=== PATIENT | female | born 1935 | race Caucasian/White ===

== ENCOUNTER 2020-12-09 14:01 | Outpatient (RCR) | payer MEDICARE, SELFPAY ==
[2020-12-09 14:14] VITALS: BP 149/56; PULSE 75; RESP 20; TEMP 36.4
== END 2020-12-12 23:59 | disposition home or self-care (01) ==
LOC: WC 14:01
PROVIDERS: PCP Internal Medicine; Visit Provider Nurse Practitioner Family
DX: Z09 Encounter for follow-up examination after completed treatment for conditions other than malignant neoplasm (principal)

== ENCOUNTER → 2022-02-16 | Outpatient (CLI) | payer MEDICARE, SELFPAY ==
--- NOTE | 2022-02-16 11:22 | ADUL_ITS ---
Reason For Study: Stricture of artery Right Velocities Ext. Iliac Artery, dist = 190.6 cm./sec. Common Femoral Artery, mid = 199.2 cm./sec. SFA is occluded. Bypass graft, prox anastomosis, 182.8 cm/sec. Bypass graft, prox, 100.1 cm/sec. Bypass graft, mid, 86.8 cm/sec. Bypass graft, distal, 91.2 cm/sec. Bypass graft, distal anastomosis, 93.3 cm/sec. Profunda Femoral Artery = 74.2 cm./sec. Popliteal artery, retrograde flow noted. COLOR PASTE MIXER, prox, retrograde flow noted. Post. Tibial Artery, mid = 182.8 cm./sec. Post. Tibial Artery, dist = 100.1 cm./sec. Peroneal Artery, prox = 49.9 cm./sec. Peroneal Artery, mid = 33.9 cm./sec. Peroneal Artery,dist = 29.2 cm./sec. Ant. Tibial Artery, prox = 43.5 cm./sec. Ant. Tibial Artery, mid = 30.2 cm./sec. CHAPO, distal, no flow noted. DPA, 36.9 cm/sec. Procedure Exam performed in department. /US Art Duplex Unilat Lower Ext Interpretation Summary Right lower extremity with no evidence of significant occlusive disease. Bypass graft is widely patent and triphasic flow noted through the tibials. Distal anterior tibial art nohemy appears occluded. Ordering Physician: Quinton Cooley Referring Physician: Humble Douglas Performed By: Humiara Rosado RVT
--- NOTE | 2022-02-16 11:23 | ART_ITS ---
Reason For Study: Stricture of artery Procedure A bilateral lower extremity continuous wave Doppler with analog waveform analysis and ankle brachial indexes. Left Segmental Pressures Left brachial= 153mmHg. Left posterior tibial artery = 88mmHg. Left dorsalis pedis artery = 88mmHg. Left digit = 42 mmHg. The left dorsalis pedis waveforms are monophasic. The left posterior tibial artery waveforms are monophasic. Right Segmental Pressures Right brachial= 152mmHg. Right posterior tibial artery = 164mmHg. Right dorsalis pedis artery = 162mmHg. Right digit = 130 mmHg. The right dorsalis pedis waveforms are biphasic. The right posterior tibial artery waveforms are biphasic. Indices The right ankle brachial index by the dorsalis pedis is 1.06. The right ankle brachial index by the posterior tibial artery is 1.07. The right digital-brachial index is 0.85. The left ankle brachial index by the dorsalis pedis is 0.58. The left ankle brachial index by the posterior tibial artery is 0.58. The left digital-brachial index is 0.27. VL/Ankle Brachial Index Interpretation Summary Right lower extremity with triphasic flow noted in IFEANYI 1.07. Left lower extremi ty with monophasic flow and an IFEANYI 0.58. Right digit brachial index normal at 0.85. Left digit bra chial index of 0.27. Ordering Physician: Quinton Cooley Referring Physician: Humble Douglas Performed By: Humaira Rosado RVT
== END | disposition home or self-care (01) ==
LOC: CVS 11:20
PROVIDERS: PCP Internal Medicine; Visit Provider Surgery Vascular Surgery
DX: I77.1 Stricture of artery (principal); I70.235 Atherosclerosis of native arteries of right leg with ulceration of other part of foot; E11.51 Type 2 diabetes mellitus with diabetic peripheral angiopathy without gangrene; I20.9 Angina pectoris, unspecified; I11.9 Hypertensive heart disease without heart failure; I25.2 Old myocardial infarction; C44.90 Unspecified malignant neoplasm of skin, unspecified; M19.90 Unspecified osteoarthritis, unspecified site; J45.909 Unspecified asthma, uncomplicated; D64.9 Anemia, unspecified; R09.89 Other specified symptoms and signs involving the circulatory and respiratory systems; Z85.05 Personal history of malignant neoplasm of liver
CPT/HCPCS: 93922; 93926

== ENCOUNTER → 2023-04-30 | Outpatient (CLI) | payer MEDICARE, SELFPAY ==
--- NOTE | 2023-04-30 13:49 | ART_ITS ---
Reason For Study: Stricture of artery Procedure A bilateral lower extremity continuous wave Doppler with analog waveform analysis and ankle brachial indexes. Left Segmental Pressures Left brachial= 135mmHg. Left posterior tibial artery = 59mmHg. Left dorsalis pedis artery = 77mmHg. Left digit = 48 mmHg. The left dorsalis pedis waveforms are monophasic. The left posterior tibial artery waveforms are monophasic. Right Segmental Pressures Right brachial= 136mmHg. Right posterior tibial artery = 158mmHg. Right dorsalis pedis artery = 148mmHg. Right digit = 131 mmHg. The right dorsalis pedis waveforms are biphasic. The right posterior tibial artery waveforms are biphasic. Indices The right ankle brachial index by the dorsalis pedis is 1.09. The right ankle brachial index by the posterior tibial artery is 1.16. The right digital-brachial index is 0.96. The left ankle brachial index by the dorsalis pedis is 0.57. The left ankle brachial index by the posterior tibial artery is 0.43. The left digital-brachial index is 0.35. VL/Ankle Brachial Index Interpretation Summary Right normal IFEANYI 1.09 and left moderate 0.57. Ordering Physician: Quinton Cooley Referring Physician: Humble Douglas Performed By: Humaira Rosado RVT
--- NOTE | 2023-04-30 13:49 | ADU_ITS ---
Reason For Study: Stricture of artery Right Velocities Left Velocities Ext. Iliac Artery, dist = 215.1 cm./sec. Ext Iliac Artery, dist = 164.6 cm./sec. Common Femoral Artery, mid = 161.3 cm./sec. Common Femoral Artery, mid = 129 cm./sec. SFA is occluded. SFA, origin, 134.5 cm/sec. Bypass graft, prox anastomosis, 93 cm/sec. SFA, prox, 595.7 cm/sec. Bypass graft, prox, 111.2 cm/sec. SFA, prox, distal to stenosis, 76 cm/sec. Bypass graft, mid, 94.8 cm/sec. Supf. Femoral Artery, mid = 39.1 cm./sec. Bypass graft, distal, 89.3 cm/sec. Supf. Femoral Artery, dist = 11.8 cm./sec. Bypass graft, distal anastomosis, 116.7 cm/sec. Profunda Femoral Artery = 285.9 cm./sec. Profunda Femoral Artery = 93 cm./sec. Popliteal Artery, mid = 97.4 cm./sec. Popliteal artery, retrograde flow noted. Post. Tibial Artery, prox = 12.4 cm./sec. PUBLIC HE[employer] NURSE, prox, retrograde flow noted. PUBLIC HE[employer] NURSE, mid, Retrograde flow noted. Post. Tibial Artery, mid = 111.7 cm./sec. PUBLIC HE[employer] NURSE, distal, No flow. Post. Tibial Artery, dist = 129.3 cm./sec. Peroneal artery, prox, No flow. Peroneal Artery, prox = 38.4 cm./sec. Peroneal artery, mid, 14.2 cm/sec. Peroneal Artery, mid = 37.3 cm./sec. Peroneal artery, distal, No flow. Peroneal Artery,dist = 25.2 cm./sec. Ant.Tibial Artery, prox = 49.4 cm./sec. Ant. Tibial Artery, mid = 47.1 cm./sec. Ant Tibial Artery, mid = 48.5 cm./sec. Ant. Tibial Artery, dist = 39.4 cm./sec. Ant. Tibial Artery, distal = 57.2 cm./sec. Post. Tibial Artery, prox = 38.3 cm./sec. Procedure Exam performed in department. /US Art Duplex Bilat Lower Ext Interpretation Summary Right leg bypass graft patent. LEft femoral severe and moderate profunda. Left posterior tibial occluded. Ordering Physician: Quinton Cooley Referring Physician: Humble Douglas Performed By: Humaira Rosado RVT
== END | disposition home or self-care (01) ==
LOC: CVS 13:47
PROVIDERS: PCP Internal Medicine; Referring Provider Surgery Vascular Surgery; Visit Provider Surgery Vascular Surgery
DX: Z48.812 Encounter for surgical aftercare following surgery on the circulatory system (principal); I70.235 Atherosclerosis of native arteries of right leg with ulceration of other part of foot; I77.1 Stricture of artery
CPT/HCPCS: 93922; 93925